=== PATIENT | female | born 1965 | race Caucasian/White ===

== ENCOUNTER 2016-09-27 19:02 | Emergency (ER) | payer OTHER ==
[~2016-09-27] VITALS: Ht 162.6 cm; Wt 56.5 kg
[~2016-09-27 19:02] MED LIST: LORA-441 PO
[2016-09-27 19:06] VITALS: Ht 162.6 cm; Wt 56.5 kg
[2016-09-27] MEDS ORDERED: IBUPROFEN 200 MG TAB PO ONE (19:30)
[2016-09-27 19:42] LABS: URINE BLOOD (Dip) POC Trace-intact (NEGATIVE)
--- NOTE | 2016-09-27 20:39 | ERD ---
ER Documentation Chief Complaint Date/Time DATE: 09/27/16 TIME: 20:33 Chief Complaint painful/burning urination x 2 weeks HPI This 51-year-old female presents to emergency department with pelvic pain, frequent urination with burning, reports that she was incontinent of urine last night, has left flank pain. Patient reports tactile fever, chills, denies nausea, vomiting, chest pain, palpitations, shortness of breath or dizziness. ROS All systems reviewed and are negative except as per history of present illness. Medications Home Meds Active Scripts Metronidazole* (Flagyl*) 500 Mg Tablet, 500 MG PO BID for 5 Days, #10 TAB Prov:SRINIVASANNAWAF 09/28/16 Lorazepam* (Ativan*) 0.5 Mg Tablet, 0.5 MG PO QHS for ANXIETY, #10 TAB Prov:SIDNEY ASHRAF PA-C 12/10/14 Allergies Allergies: Coded Allergies: tetracycline (Verified Allergy, Unknown, rash, 09/27/16) PMhx/Soc History of Surgery: No Anesthesia Reaction: No Hx Neurological Disorder: No Hx Respiratory Disorders: No Hx Cardiac Disorders: No Hx Psychiatric Problems: No Hx Miscellaneous Medical Probl: No Hx Alcohol Use: No Hx Substance Use: No Hx Tobacco Use: No Smoking Status: Never smoker Physical Exam Vitals Vital Signs Date Time Temp Pulse Resp B/P Pulse Ox O2 Delivery O2 Flow Rate FiO2 09/28/16 01:55 99.0 67 20 120/69 98 Room Air 09/27/16 19:06 98.7 68 20 126/71 98 Vitals stable, triage notes reviewed Physical Exam Const: Well hydrated, well appearing, well-nourished in no acute Head: Atraumatic Eyes: Normal Conjunctiva, PERRLA, EOMI ENT: Normal External Ears, Nose and Mouth, mucous membranes moist Neck: . Resp: Respirations even and unlabored, no respiratory Cardio: Abd: Abdomen symmetric, pelvic tenderness, negative Dunlap sign, negative McBurney's point tenderness Skin: Back: No midline or left flank tenderness Ext: Neur: Awake and alert Psych: Normal Mood and Affect Results 24 hrs Laboratory Tests Test 09/27/16 19:47 Bedside Urine pH (LAB) 5.5 Bedside Urine Protein (LAB) Negative Bedside Urine Glucose (UA) Negative Bedside Urine Ketones (LAB) Negative Bedside Urine Blood Trace-intact Bedside Urine Nitrite (LAB) Negative Bedside Urine Leukocyte Esterase (L Negative Current Medications Medications (Trade) Dose Ordered Sig/Yuri Route PRN Reason Start Time Stop Time Status Last Admin Dose Admin Ibuprofen (Motrin) 400 mg ONCE ONCE PO 09/27/16 19:30 09/27/16 19:31 DC 09/27/16 19:37 Procedures/MDM PROCEDURE: ULTRASOUND PELVIS - TRANSABDOMINAL ONLY CLINICAL INDICATION: 51-year-old female with pelvic pain. TECHNIQUE: Multiple sonographic images of the pelvis were obtained utilizing a transabdominal technique. The images were reviewed on a PACS workstation. COMPARISON: None. FINDINGS: The uterus is visualized and measures 7.4 x 2.7 x 4.4 cm. The endometrial echo complex is within normal limits and measures 1.6 mm. There is no evidence for free fluid. The ovaries were not visualized bilaterally. No adnexal masses are noted. IMPRESSION: The ovaries were not able to be visualized otherwise unremarkable transabdominal pelvic ultrasound. Electronically viewed and signed by .Mook Dennis MD, on 09/27/2016 23:06 PROCEDURE: Renal US. CLINICAL INDICATION: Flank pain TECHNIQUE: Multiple sonographic images of the kidneys were obtained. COMPARISON: No prior studies are submitted for comparison. FINDINGS: The right kidney measures 8.9 x 3.2 x 5.1 cm. There is preservation of corticomedullary differentiation. No shadowing renal calculus is identified. There is no evidence of hydronephrosis. The left kidney measures 9.1 x 4.8 x 4.6 cm. There is preservation of corticomedullary differentiation. No shadowing renal calculus is identified. There is no evidence of hydronephrosis. The bladder is underdistended. The visualized aorta is within normal limits. The visualized portions of the IVC are within normal limits. IMPRESSION: No evidence of shadowing renal calculi or hydronephrosis. Electronically viewed and signed by .Tanner Owens MD, on 09/27/2016 23:07 Pelvic Exam: Writing Manager present Abdomen: Nontender External Genitalia: Normal Skin no lesions, ulcers, or Speculum: Normal vaginal mucosa, copious white thin discharge Bimanual: No adnexal masses tenderness, No CMT This pleasant 51-year-old female presents to emergency department for evaluation of dysuria and pelvic pain radiating to right low back. Urinalysis was obtained negative for evidence nitrates or leukocytosis, positive for microscopic hematuria and WBCs. No suspicion for pyelonephritis. Transabdominal ultrasound in renal ultrasound obtained to rule out uterine fibroids, mass or free fluid collection. Ultrasound documents The uterus is visualized and measures 7.4 x 2.7 x 4.4 cm. The endometrial echo complex is within normal limits and measures 1.6 mm. There is no evidence for free fluid. The ovaries were not visualized bilaterally. No adnexal masses are noted. Renal ultrasound documents; No evidence of shadowing renal calculi or hydronephrosis. Patient tells me after above workup that she has recently started to become sexually active after being abstinent for 6-7 years. Reports pain started after coitus with a new partner, patient reports that she used a condom, reports vaginal discharge. Pelvic exam above, vaginal culture is obtained for gonorrhea, chlamydia, likely bacterial vaginosis treatment will start with Flagyl 500 mg 1 tab p.o. twice daily, patient has not had a Pap smear in over 2 years was instructed to follow-up with gynecology for well woman evaluation. Acknowledged and praised patient for use of condom. Patient instructed to be abstinent while on antibiotics, continue to use condoms, that she would be called at home for any positive test results by physician. I feel the patient is stable for discharge at this time. I have discussed results, examination findings, the treatment plan with the patient and family present prior to discharge. Indications for emergent reevaluation, side effects of medication were also discussed. All questions were answered. Patient verbalizes understanding and agrees with plan of care. Departure Diagnosis: Primary Impression: Bacterial vaginal infection Condition: Good Patient Instructions: Vaginal Infection: Bacterial Vaginosis Referrals: [facility] Additional Instructions: Thank you for for coming to [facility] for your care today. Please ask your nurse or provider if you have questions about your care today and do not leave until all your questions have been answered. Please use any medications given as directed and follow-up with your doctor (or the doctor you were referred to) in the next 2-3 days. If you do not have a primary care doctor you may follow up at the [facility] - [place], [place] (listed below). You may also use motrin and tylenol as needed for fever and/or pain unless instructed otherwise by your provider or nurse. Indications for more urgent follow-up have been discussed, but you may return to the Emergency Department at ANY time for any worrisome or worsening symptoms. If you have abdominal pain, please know that no test or exam you received is perfect and you should follow up within 8 hours for continued pain. If you had any imaging studies today, such as an X-Ray or CT Scan, these studies will be reviewed later by a radiologist. You will be called if there are important findings that were not identified today, so make sure the contact information you provided at registration is correct. If you received any narcotic pain control medicine today, such as Vicodin, Morphine or Dilaudid, your coordination and judgment may be affected for a number of hours. Please do not drive or operate heavy machinery, and you may want someone to assist you at home. If you were given a prescription for narcotic medication, be aware that it is very addictive- use sparingly and only if necessary. NAWAF MATTSON Sep 27, 2016 20:39
--- NOTE | 2016-09-27 23:07 | RADRPT ---
PROCEDURE: ULTRASOUND PELVIS - TRANSABDOMINAL ONLY CLINICAL INDICATION: 51-year-old female with pelvic pain. TECHNIQUE: Multiple sonographic images of the pelvis were obtained utilizing a transabdominal tech nique. The images were reviewed on a PACS workstation. COMPARISON: None. FINDINGS: The uterus is visualized and measures 7.4 x 2.7 x 4.4 cm. The endometrial echo complex is within nor mal limits and measures 1.6 mm. There is no evidence for free fluid. The ovaries were not visualized bilaterally. No adnexal masses are noted. IMPRESSION: The ovaries were not able to be visualized otherwise unremarkable transabdominal pelvic ultrasound. .Mook Dennis MD, MD Date Time Electronically viewed and signed by .Mook Dennis MD, on 09/27/2016 23:06 .Nenita
--- NOTE | 2016-09-27 23:07 | RADRPT ---
PROCEDURE: Renal US. CLINICAL INDICATION: Flank pain TECHNIQUE: Multiple sonographic images of the kidneys were obtained. COMPARISON: No prior studies are submitted for comparison. FINDINGS: The right kidney measures 8.9 x 3.2 x 5.1 cm. There is preservation of corticomedullary differentiat ion. No shadowing renal calculus is identified. There is no evidence of hydronephrosis. The left kidney measures 9.1 x 4.8 x 4.6 cm. There is preservation of corticomedullary differentiati on. No shadowing renal calculus is identified. There is no evidence of hydronephrosis. The bladder is underdistended. The visualized aorta is within normal limits. The visualized portions of the IVC are within normal l imits. IMPRESSION: No evidence of shadowing renal calculi or hydronephrosis. RPTAT: HIKT .Tanner Owens MD, Date Time Electronically viewed and signed by .Tanner Owens MD, on 09/27/2016 23:07 .T/
[2016-09-28] MEDS ORDERED: METR500T PO (01:35)
[2016-09-28 01:55] VITALS: BP 120/69; PULSE 67; RESP 20; TEMP 99
[2016-10-06 16:16] LABS: URINE BLOOD (Dip) POC Trace-intact (NEGATIVE)
== END 2016-09-28 01:56 | disposition home or self-care (01) ==
LOC: FTE 19:02
DX: N76.0 Acute vaginitis (principal); R10.2 Pelvic and perineal pain
CPT/HCPCS: 76775; 76856; 81003; 87081; 87591; Z7610; 36415

== ENCOUNTER 2017-03-17 10:25 | Emergency (ER) | END 2017-03-17 11:58 | disposition home or self-care (01) ==

== ENCOUNTER 2017-03-31 23:37 | Emergency (ER) | END 2017-04-01 03:47 | disposition home or self-care (01) ==